=== PATIENT | female | born 1970 | race Caucasian/White ===

== ENCOUNTER 2022-02-01 09:00 | Outpatient (CLI) | payer OTHER, SELFPAY | END 2022-02-01 09:01 | disposition home or self-care (01) | LOC: NFLDREF 09:00 | PROVIDERS: PCP Obstetrics & Gynecology; Visit Provider Obstetrics & Gynecology | DX: Z01.419 Encounter for gynecological examination (general) (routine) without abnormal findings (principal); F41.9 Anxiety disorder, unspecified; Z12.4 Encounter for screening for malignant neoplasm of cervix | CPT/HCPCS: 87624; 88175 ==

== ENCOUNTER 2022-02-01 09:19 | Outpatient (CLI) | payer OTHER, SELFPAY ==
--- NOTE | 2022-02-01 09:15 | CRLHL7_ITS ---
For Patients: As a result of the Century Cures Act, medical imaging exams and procedure reports are released immediately into your electronic medical record. You may view this report before your referring provider. If you have questions, please contact your health care provider. BILATERAL SCREENING MAMMOGRAM WITH COMPUTER-AIDED DETECTION AND TOMOSYNTHESIS TECHNIQUE: CC and MLO views were obtained. These mammographic images have been obtained using full-field digital technique. These mammographic images were interpreted with the benefit of computer-aided detection. Breast Tomosynthesis was used in this interpretation. COMPARISON FILM: 01/28/2021, 01/21/2019, 12/13/2017. FINDINGS: The breasts are heterogeneously dense, which may obscure small masses IMPRESSION: There is no radiographic evidence for malignancy. ASSESSMENT: BI-RADS Category 1: Negative RECOMMENDATION: Routine screening mammogram in 1 year. A lay language report of this examination will be provided to the patient. Thien Chu M.D. Diagnostic Radiologist [email or web address] ALEX/yumiko calderon/Dictated by: Thien Chu MD @ 02/01/2022 10:08:00 AM (Electronically Signed)
== END 2022-02-01 09:20 | disposition home or self-care (01) ==
LOC: MAMMO 09:20
PROVIDERS: PCP Obstetrics & Gynecology; Visit Provider Obstetrics & Gynecology
DX: Z12.31 Encounter for screening mammogram for malignant neoplasm of breast (principal)
CPT/HCPCS: 77063; 77067

== ENCOUNTER 2022-07-10 06:42 | Emergency (ER) | payer OTHER, SELFPAY ==
--- NOTE | 2022-07-10 | CRLHL7_ITS ---
For Patients: As a result of the Century Cures Act, medical imaging exams and procedure reports are released immediately into your electronic medical record. You may view this report before your referring provider. If you have questions, please contact your health care provider. INDICATION: Post reduction. TECHNIQUE: Right elbow 2 views. COMPARISON: Same day right elbow and humerus radiographs. FINDINGS: Interval reduction of the previously seen elbow dislocation. There is an acute nondisplaced fracture of the radial head which can be subtly visualized on lateral view. This is better seen on the prior humerus radiographs. Moderate elbow joint effusion. Soft tissues are unremarkable. IMPRESSION: 1. Reduction of the previously seen elbow dislocation. 2. Acute nondisplaced fracture of the radial head. 3. Moderate elbow joint effusion. Dictated by Bonnie Ford MD @ 07/10/2022 8:16:04 AM (Electronically Signed)
--- NOTE | 2022-07-10 06:45 | ED_ITS ---
HPI - Extremity Injury (Upper) General Date Seen: 07/10/22 Chief Complaint: Extremity Pain/Injury, Upper Stated Complaint: Fall/right elbow injury Time Seen by Provider: 07/10/22 06:45 Source: patient, family, RN notes reviewed and old records reviewed Mode of arrival: ambulatory Limitations: no limitations History of Present Illness HPI narrative: Yajaira is a very pleasant 52-year-old female previously healthy who comes to the emergency room with right elbow pain and deformity after a fall. Patient notes that she was up this morning and fell over her dog landing on an outstretched right arm. She states she felt her elbow go backwards. She denies any other injury including head trauma or neck pain. She does note that initially her shoulder hurt but now that does not hurt as much. She denies numbness or tingling in the hands. She is able to move her fingers. She has not injured her herself in this fashion in the past. Any movement increases her discomfort. She is preferring to lie with her hand supinated by her side. She has not taken any medications for this. Patient has been NPO of food for almost 12 hours but did drink water at 0530. Injury occurred at 0620. Patient has not had problems with anesthesia in the past has not had any recent cough cold congestion fever or chills. She denies COPD, tobacco use. Alcohol use is social. Denies history of narcotic addiction drug use. Related Data Allergies Allergy/AdvReac Type Severity Reaction Status Date / Time No Known Allergies Allergy Verified 06/27/22 14:01 Review of Systems Status of ROS: Reports: 10 or more systems reviewed and unremarkable except as noted in History and below Const: Denies: fever or chills ENMT: Denies: throat pain, neck pain or difficulty swallowing Cardio: Denies: chest pain, palpitations or shortness of breath with exertion Resp: Denies: shortness of breath, cough or wheezing GI: Denies: abdominal pain, nausea, vomiting or difficulty swallowing Musculo: Denies: neck pain Integ/Breast: Denies: rash Neuro: Denies: headache or numbness in extremities Psych: Reports: anxiety Allergy/Immuno: Denies: wheezing PFSH PFSH Medical History 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 She works at [employer] as a teacher She has a master's degree She exercises 7 days a week by walking She does not smoke She has 1-2 drinks a week She does not use recreational drugs Smoking Status: Never smoker Do you use any of these nicotine containing products: None How often do you have a drink containing alcohol: monthly or less AUDIT-C Alcohol total score: 1 Non-prescribed substance use: denies use Little interest or pleasure in doing things: several days Feeling down, depressed, or hopeless: not at all service: No Exam Narrative: Exam Narrative: Patient is alert and oriented. GCS 15. EOM is full. Oral cavity with moist mucous membranes. Dentition intact. Posterior oropharynx clearly visualized. Neck is supple. Head is atraumatic normocephalic. No midline cervical tenderness. Range of motion full. Palpation over clavicles without discomfort. Heart with regular rate and rhythm and lungs are clear. Abdomen soft. Moving lower extremities. No unusual edema in the lower extremities. Examination of the right arm shows clear deformity at the right elbow. However distally hand sensation and motor is intact. Pulses are intact. Const: Vital Signs, click to edit/add: Vital Signs - 24 hr 07/10/22 06:52 07/10/22 07:25 07/10/22 07:49 Temperature 97.3 F L Pulse Rate [Left P ulse Oximeter] 56 L 54 L 62 Respiratory Rate 20 20 16 Blood Pressure [Le ft Upper Arm] 134/78 121/90 H 139/85 Pulse Oximetry 99 98 96 Oxygen Delivery Me thod Room Air Room Air Nasal Cannula 07/10/22 07:52 07/10/22 07:59 Temperature Pulse Rate [Left P ulse Oximeter] 55 L 61 Respiratory Rate 16 16 Blood Pressure [Le ft Upper Arm] 140/74 H 131/75 Pulse Oximetry 97 99 Oxygen Delivery Me thod Nasal Cannula Nasal Cannula Documenting provider has reviewed patient's vital signs: yes Course Course Hospital Course: Obvious deformity to the elbow suggesting dislocation. We have contacted the OR for anesthesia support as well as enquiring about any orthopedic surgeon in house. Patient will have IV established and medication morphine 4 mg and Zofran 4 mg. X-ray and route peer Reevaluation(s) Reevaluation #1: Patient noted to have continued pain and Dilaudid 0.5 mg IV is given. I discussed with patient and her need for reduction. I did explain however that there is increased risk of nerve injury, movement of any fractured parts of the bone within the elbow, vessel injury and increased pain. Risks benefits of anesthesia were also discussed including aspiration and reaction. Patient and her agree to go forward with our plan of conscious sedation with propofol and reduction. signs form for his . Reevaluation #2: Anesthesia present. Orthopedics would prefer to reduce this dislocation. We did change the consent form to reflect this. Orthopedic consult successfully reduced dislocation.. Post reduction films show successful reduction and nondisplaced radial head fracture. Vital Signs Vital signs: Initial Vital Signs Temperature 97.3 F L 07/10/22 06:52 Temperature Source Temporal Artery Scan 07/10/22 06:52 Pulse Rate 56 L 07/10/22 06:52 Pulse Rhythm 07/10/22 06:52 Respiratory Rate 20 07/10/22 06:52 Blood Pressure 134/78 07/10/22 06:52 Blood Pressure Mean 96 07/10/22 06:52 Blood Pressure Position Semi-Fowlers 07/10/22 06:52 Pulse Oximetry 99 07/10/22 06:52 Oxygen Delivery Method 07/10/22 06:52 Vital Signs Temperature 97.3 F L 07/10/22 06:52 Pulse Rate 56 L 07/10/22 06:52 Respiratory Rate 20 07/10/22 06:52 Blood Pressure 134/78 07/10/22 06:52 Pulse Oximetry 99 07/10/22 06:52 Oxygen Delivery Method 07/10/22 06:52 Temperature 97.3 F L 07/10/22 06:52 Pulse Rate 61 07/10/22 07:59 Respiratory Rate 16 07/10/22 07:59 Blood Pressure 131/75 07/10/22 07:59 Pulse Oximetry 99 07/10/22 07:59 Oxygen Delivery Method 07/10/22 07:59 MDM - Extremity Injury (Upper) MDM Narrative Medical decision making narrative: 1. Right elbow dislocation-this was successfully reduced by Dr. Murrell, orthopedic work and family life consultant. This was done with anesthesia's assistance with the use of propofol. Patient notes that she is feeling better. She notes that the feeling of her arm at a point where it is almost going to sleep has markedly improved and now she only has that feeling at the most proximal aspect of her forearm. She continues to move her fingers without difficulty and her objective sensation is fully intact, as are her pulses. Patient is placed in a sling and will follow up with Orthopedics in 5-7 days. We did talk about gentle removal of the arm from the sling occasionally with only gravity to straighten it and gentle movement if she absolutely feels the need to do that. Otherwise, wear sling until seen by Orthopedics. For pain, ibuprofen or perhaps patient has Voltaren which she has at home. Oxycodone 5 mg 1-2 tabs p.o. q.6 hours p.r.n. 10. [employer] is given. 2. Right radial head fracture -no displacement post reduction. 3. Disposition-home with her . No work this week. Return to the emergency room for worsening symptoms. Follow-up with orthopedics as previously discussed. Medical Records Attestation: I reviewed the patient's medical records. Imaging Data Elbow x-ray 1. : Attestation: I have reviewed the pertinent imaging results. My impression: Dislocation of the elbow. Radial head fracture. Radiologist's impression: The glenohumeral joint is normally aligned. There is posterior dislocation of the radius and ulna relative to the humerus. There is an acute nondisplaced fracture of the radial head. Soft tissues are unremarkable. IMPRESSION: 1. Elbow dislocation. 2. Acute nondisplaced fracture of the radial head. Humerus x-ray: Attestation: I have reviewed the pertinent imaging results. My impression: No fracture noted Radiologist's impression: INDINGS: There is posterior dislocation of the radius and ulna relative to the humerus. Acute fracture of the radial head is better seen on the humerus radiographs. Soft tissues are unremarkable. IMPRESSION: Elbow dislocation. Post reduction elbow x-ray: Attestation: I have reviewed the pertinent imaging results. My impression: Successful reduction of elbow dislocation. Radiologist's impression: FINDINGS: Interval reduction of the previously seen elbow dislocation. There is an acute nondisplaced fracture of the radial head which can be subtly visualized on lateral view. This is better seen on the prior humerus radiographs. Moderate elbow joint effusion. Soft tissues are unremarkable. IMPRESSION: 1. Reduction of the previously seen elbow dislocation. 2. Acute nondisplaced fracture of the radial head. 3. Moderate elbow joint effusion. Critical Care Time Critical Care Time Critical Care Time: Yes Attestation: The patient required my highest level preparedness to intervene emergently and I personally spent this critical care time directly and personally managing the patient. This critical care time included: Obtaining a history; Examining the patient; Pulse oximetry; Ordering and reviewing of studies; Arranging urgent treatment with development of a management plan; Evaluation of patients response to treatment; Frequent reassessment discussions with other providers. This critical care time was performed to assess and manage the high probability of imminent life-threatening deterioration that could result in multiorgan failure. It was exclusive of separate billable procedures and treating other patients and teaching time. Total Critical Care Time in Minutes: 60 Discharge Plan Discharge Clinical Impression: Closed fracture of radial head, Dislocation of elbow, right, closed Patient Disposition: Home, Self-Care Condition: Improved Additional Instructions: Follow-up with orthopedics in 1 week. Your appointment is Tylenol or ibuprofen as needed for discomfort. Oxycodone as needed for pain not relieved by Tylenol or ibuprofen. Icing may help discomfort. Please do not place ice on bare skin. Sling. Follow Up/Referrals: Miranda Gonzalez MD [Staff Physician] - Stand Alone Forms: [employer] Info Instructions
[2022-07-10 06:52] VITALS: BP 134/78; PULSE 56; RESP 20; TEMP 36.3; O2SAT 99
--- NOTE | 2022-07-10 06:53 | XR_ITS ---
Patient: TJ CUENCA Facility:?[facility] Patient ID:?[id number] Site Patient ID:?[id number]. Site :?[id number] Study:?XRay-Extremity Right humerus-07/10/2022 7:19:20 AM Ordering Physician:Gianluca Serna Final Report: INDICATION: Fall. TECHNIQUE: Right humerus 3 views. COMPARISON: None. FINDINGS: The glenohumeral joint is normally aligned. There is posterior dislocation of the radius and ulna relative to the humerus. There is an acute nondisplaced fracture of the radial head. Soft tissues are unremarkable. IMPRESSION: 1. Elbow dislocation. 2. Acute nondisplaced fracture of the radial head. Dictated by oBnnie Ford MD @ 07/10/2022 8:11:44 AM Signed by:?Bonnie Ford MD @07/10/2022 8:11:44 AM (Electronic Signature)
--- NOTE | 2022-07-10 06:53 | CRLHL7_ITS ---
For Patients: As a result of the Cures Act, medical imaging exams and procedure reports are released immediately into your electronic medical record. You may view this report before your referring provider. If you have questions, please contact your health care provider. INDICATION: Fall. TECHNIQUE: Right elbow 1 view. COMPARISON: None. FINDINGS: There is posterior dislocation of the radius and ulna relative to the humerus. Acute fracture of the radial head is better seen on the humerus radiographs. Soft tissues are unremarkable. IMPRESSION: Elbow dislocation. Dictated by Bonnie Ford MD @ 07/10/2022 8:13:33 AM (Electronically Signed)
[2022-07-10] MEDS: ONDANSETRON 2 MG/ML inj 4 MG IVP (06:59)
[2022-07-10] MEDS: MORPHINE 4 MG/ML INJ IVP (06:59)
[2022-07-10] MEDS: HYDROmorphone 0.5 mg/0.5 ml inj IVP (07:22)
[2022-07-10 07:25] VITALS: BP 121/90; PULSE 54; RESP 20; O2SAT 98
--- NOTE | 2022-07-10 07:33 | ED.NURSE ---
pt resting in bed, rates R elbow pain 8/10. at bedside.
[2022-07-10 07:49] VITALS: BP 139/85; PULSE 62; RESP 16; O2SAT 96
[2022-07-10 07:52] VITALS: BP 140/74; PULSE 55; RESP 16; O2SAT 97
[2022-07-10 07:59] VITALS: BP 131/75; PULSE 61; RESP 16; O2SAT 99
--- NOTE | 2022-07-10 08:02 | W.ANESCHARGE ---
Anesthesia Charges Start Date/Time Anesthesia Start Date: 07/10/22 Anesthesia Start Time: 07:40 Stop Date/Time Anesthesia Stop Date: 07/10/22 Anesthesia Stop Time: 07:55 Summary Emergency: Yes
--- NOTE | 2022-07-10 08:07 | ED.NURSE ---
pt had conscious sedation to reduce R elbow dislocation. anesthesia, dr. viera, and dr. cabezas in procedure. pt tolerated well. pt awake and talking now. r arm in sling. x-rays done. back at bedside.
--- NOTE | 2022-07-10 08:20 | P.ORCN_ITS ---
History of Present Illness HPI Date Seen: 07/10/22 Chief complaint: Fall/right elbow injury Narrative: Yajaira is a pleasant 52-year-old female, right-hand dominant, who reports a fall this morning from a standing height. She tripped over her dog in the house landing onto an outstretched right arm. Severe pain. Obvious deformity about her right elbow. Presented [facility]. X-rays were obtained revealed the posterior lateral elbow dislocation. Orthopedics is consulted to assist with possible reduction. She continues to have sharp pain about the right elbow. Worse with palpation or motion attempt. Relieved with rest. No numbness or tingling. Beyond that, she does note that initially her shoulder hurt but now that does not hurt as much.? She denies numbness or tingling in the hands.? She is able to move her fingers.? Patient has been NPO of food for almost 12 hours but did drink water at 0530.? Injury occurred at 0620.? Review of Systems Narrative: Denies chest pain or shortness of breath. No blurry vision double vision or headaches. No easy bleeding or bruising or clotting disorders in himself or family members. Remaining 10 point review systems otherwise negative, outside of the right elbow and primarily and secondarily mild right shoulder pain. 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 She exercises 7 days a week by walking She does not smoke She has 1-2 drinks a week She does not use recreational drugs Smoking Status: Never smoker Do you use any of these nicotine containing products: None How often do you have a drink containing alcohol: monthly or less AUDIT-C Alcohol total score: 1 Non-prescribed substance use: denies use Little interest or pleasure in doing things: several days Feeling down, depressed, or hopeless: not at all service: No Meds Home Medications and Allergies Allergies Allergy/AdvReac Type Severity Reaction Status Date / Time No Known Allergies Allergy Verified 06/27/22 14:01 Ortho Exam Narrative Exam Narrative: She is alert and oriented x3. No acute distress. Nonlabored breathing. Exam of the right upper extremity shows obvious deformity about the right elbow. There is a substantial prominence to the olecranon and range of motion is not tolerated. Neurologically intact radial, ulnar, and median nerves to sensory light touch and motor function. 2+ radial pulse. Digits pink, warm, brisk capillary refill. Const Vital Signs, click to edit/add: Vital Signs - 24 hr 07/10/22 06:52 07/10/22 07:25 07/10/22 07:49 Temperature 97.3 F L Pulse Rate [Left Pulse Oximeter] 56 L 54 L 62 Respiratory Rate 20 20 16 Blood Pressure [Left Upper Arm] 134/78 121/90 H 139/85 Pulse Oximetry 99 98 96 Oxygen Delivery Method Room Air Room Air Nasal Cannula 07/10/22 07:52 07/10/22 07:59 Temperature Pulse Rate [Left Pulse Oximeter] 55 L 61 Respiratory Rate 16 16 Blood Pressure [Left Upper Arm] 140/74 H 131/75 Pulse Oximetry 97 99 Oxygen Delivery Method Nasal Cannula Nasal Cannula Results Diagnostic results Additional Comments: Three views the right humerus and one view of the right elbow from [facility] dated 07/10/2022 ordered by doing a provider in reviewed by me. This shows a posterolateral right elbow dislocation that is complete. There appears to be a nondisplaced radial head fracture seen best on the oblique view of the distal elbow on 1 of the humerus views. Regarding the proximal humerus, I do not appreciate any acute fractures, avulsions, or intraosseous pathology otherwise. Procedures Orthopedic Joint Reduction Right elbow dislocation reduction: Time out performed: Yes Side: right Joint reduction location: elbow Analgesia: procedural sedation Local anesthetic used: other anesthetic (Anesthesia team administered propofol) Technique used: traction/counter-traction and direct manipulation Post-reduction neuro exam: intact Post-reduction vascular exam: intact Post-reduction x-ray obtained: Yes Post-reduction x-ray results: reduced Patient tolerated procedure: well Additional comments: Sling applied Assessment and Plan Assessment and plan (1) Closed fracture of radial head: Status: Acute (2) Dislocation of elbow, right, closed: Status: Acute Plan Had a good discussion today with tiny regarding her right elbow. Indeed, I do think attempted reduction here in the emergency department is prudent. We of connected with the emergency room physician, Dr. Sosa, as well as the anesthesia team, with Jj Herman. The anesthesia team is willing and able to provide propofol sedation. I will plan for closed reduction with manipulation here in the emergency room. Anticipate sling following the manipulation and reduction. Indeed, after propofol sedation and relaxation, the right elbow was reduced with slight elbow extension, traction, and then flexion. This was all done while manually manipulating the olecranon with my upset hand. This indeed had a palpable and audible clunk confirming its reduced state. In addition, forearm pronation supination as well as elbow flexion extension produces no crepitus but instead had a smooth range of motion consistent with a reduced state. Post reduction AP and lateral views of the right elbow confirm the elbow to indeed be reduced. The fracture of the radial head is not visible on these 2 images again suggesting that is nondisplaced anatomy. Moving forward, sling to right upper extremity for comfort. Finger and wrist range of motion as tolerated. Analgesics p.r.n.. Follow up in 7-10 days repeat clinical check. Anticipate starting to come out of the sling at that time for gentle range of motion as tolerated of the elbow.
[2022-07-10 08:45] VITALS: BP 131/75; PULSE 61; RESP 16; O2SAT 99
== END 2022-07-10 09:00 | disposition home or self-care (01) ==
PROVIDERS: Emergency Provider Family Medicine
DX: S52.121A Displaced fracture of head of right radius, initial encounter for closed fracture (principal); W01.0XXA Fall on same level from slipping, tripping and stumbling without subsequent striking against object, initial encounter
CPT/HCPCS: 01740; 24655; 25605; 73060; 73070; 94761; 96374; 96375; 99140; 99285; 99291; J1170; J2270; J2405; J2704

== ENCOUNTER 2022-10-25 16:00 | Outpatient (RCR) | payer OTHER, SELFPAY ==
--- NOTE | 2022-10-16 16:54 | OT.OPOE ---
OT Outpatient Ortho Eval OT Outpatient Ortho Eval Start: 10/16/22 16:23 Freq: Status: Active Protocol: Document 10/16/22 16:23 LCN (Rec: 10/16/22 16:46 LCN Desktop) E-signed By Lavern Mcdonald, OTR/L, CLT OT OP Ortho Eval Details Type Type Eval Complexity Low Insurance Information Insurance Information [facility] History/Precautions Current Condition/Medical Diagnosis Referring Provider Andre Munoz Treatment Diagnosis Elbow dislocation, closed non displaced radial fracture with loss of ROM Date of Onset 07/10/22 Other Precautions Xray shows good healing at radial head, joint stability instact surrounding elbow. Advised to increase activity to tolerance and watch for increased pain. Medical Conditions Depression Other Conditions sees chiropractor for maintenance of chronic neck and shoulder pain, insomnia. Medical/Functional History Medical History Reviewed Yes Prior Level of Function/Mobility Yajaira is a very active 52 y/o female, lives with her in [place] and has second home she is remodeling in [place]. 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 Fitness Walking daily 5 miles per day. Oriented Mental Status Comments Pt has anxiety and depression, well managed usually through activity. Ortho Subjective Subjective Subjective Yajaira Villalta is a 52 y/o female who tripped over her dog on her carpeted bedroom floor and dislocated her R elbow during the fall onto out stretched hand. She wore a sling for the first week, had increased hand /elbow edema with stiffness, and was issued tubigrip to wear at her visit with Dr. Munoz. Pain Assessment Pain Present Pain Present Pain Reported Shoulder Goniometric ROM Shoulder R Active Flexion (150-180 degrees) 165 Query Text: Shoulder Gross Strength Shoulder R Testing Position Sitting Flexion 5 Normal Extension 5 Normal Abduction 5 Normal Adduction 5 Normal External Rotation 5 Normal Internal Rotation 5 Normal Goniometric Comments Goniometric Comments Goniometric Comments R EL IVETTE to 177 of -10. TEF to 130 of 142 (easiest in supination, neutral), restricted by soft tissue impingement/edema. MMT 5/5 for biceps/triceps. Swimming Pool Attendant/pinch NT, not available. Edema 3 cm above elbow crease is 23.0 R and 20.6 cm L. Pain-- none at rest, pressure during lifting a gallon of milk.Prickly achy feeling at radfial head/deep in joint, comes in waves 3-4 times per week. OT Objective Data Hand Hand Dominance Right OT Problems Problems Problems Decreased Range of Motion, Lifting Problems Comments curling, drying hair, stiff shoulder when reaching overhead to ney tops. Other Problems Fasteners Assessment Assessment Assessment With Yajaira's recent R elbow dislocation she is having some residual?difficulty with edema, aching and ROM of R shoulder/elbow and she would benefit from skilled OT to address these areas. Occupational Therapy Treatment Plan - OP Potential Rehabilitation Potential Excellent Set Goals Goals Set with Patient Yes Goals Goals In 4 weeks, pt will demonstrate:? 1) Decreased pn to <1/10 80% of the time with sustained gripping, carrying groceries, reading books and doing hair. 2) I HEP for stretching, gradual strengthening and self mgmt strategies. 3) balanced prescription clerk pinch strength with pain < 1/10. Treatment Plan Treatment Plan Evaluation,Iontophoresis,Joint Mobilization,Manual Therapy, Therapeutic Exercise,Education Expected Frequency 1-2x Week Expected Duration 2-4 Weeks Expected Duration Comments estimate 2-4 visits needed at max. Certification Certification I Certify That: Therapy Services Provided, Therapy Plan Established, Therapy Plan Reviewed
--- NOTE | 2022-10-25 17:33 | OT.OPODN ---
OT Outpatient Ortho Daily Note OT Outpatient Ortho Daily Note Start: 10/16/22 16:23 Freq: Status: Active Protocol: Document 10/25/22 17:13 LCN (Rec: 10/25/22 17:33 LCN Desktop) E-signed By Lavern Mcdonald, OTR/L, CLT Type of Note Type of Note Type of Note Daily Note,Discharge Note Visit Number 3 Insurance Information Insurance Information [facility] History/Precautions Current Condition/Medical Diagnosis Referring Provider Andre Munoz Treatment Diagnosis Elbow dislocation, closed non displaced radial fracture with loss of ROM Date of Onset 07/10/22 Other Precautions Xray shows good healing at radial head, joint stability instact surrounding elbow. Advised to increase activity to tolerance and watch for increased pain. Medical Conditions Depression Other Conditions sees chiropractor for maintenance of chronic neck and shoulder pain, insomnia. Medical/Functional History Medical History Reviewed Yes Prior Level of Function/Mobility Yajaira is a very active 52 y/o female, lives with her in [place] and has second home she is remodeling in [place]. 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 Fitness Walking daily 5 miles per day. Oriented Mental Status Comments Pt has anxiety and depression, well managed usually through activity. Ortho Subjective Subjective Subjective Pt has returned to full ROM of EL flexion and hyper extension. She does her self tractioning stretches on doorway for IVETTE, which helps with any lagging, stickiness in joint. Still gets mild waves of achiness at end of her work day. Responds well to stretches. Pain Assessment Pain Present Pain Present Pain Reported / OT OP Daily Ortho Note/Assessment Therapeutic Exercise Therapeutic Exercise Minutes (minutes) 16 Therapeutic Exercise Comments Added HEP for upper body strengthening, supporting full AROM of elbow and joint stability--UB resistance H ABD , SH diagonals, ER, chest press and biceps 2 sets of 10 reps, green band. Well tolerated needs cues to keep wrist neutral (gurpreet R) and spinal alignment. Manual Therapy Manual Therapy Minutes (minutes) 16 Manual Therapy Comments OTR completed IASTM with Armin #6 to mobilize soft tissue surrounding joint capsule,?ligament structures and muscle groups to support freedom of movement and healing of structures of R triceps ( gurpreet triceps insert gritty at margin, MT juction), muscle bellies of biceps, axillary border of scapula, flexor and extensor muscle bulk of upper forearm. Pt has more EL FL to 140 by end of session in SH FL plane, now matches in SH ABD plane. IVETTE to -10, same as L. Shoulder Goniometric ROM Shoulder R Reason Not Measured Within Functional Limits Active Flexion (150-180 degrees) 170 Query Text: Shoulder Gross Strength Shoulder R Testing Position Sitting Flexion 5 Normal Extension 5 Normal Abduction 5 Normal Adduction 5 Normal External Rotation 5 Normal Internal Rotation 5 Normal Goniometric Comments Goniometric Comments Goniometric Comments 10/25/22-- R EL IVETTE to -10 of - 10. TEF to 140 of 142 ( easiest in supination, neutral ), restricted by soft tissue impingement/edema. MMT 5/5 for biceps/triceps. Waxing Machine Operator Helper/pinch NT, not available. Edema 3 cm above elbow crease is 23.0 R and 20.6 cm L. Pain-- none at rest, pressure during lifting a gallon of milk.Prickly achy feeling at radial head/deep in joint, comes in waves 3-4 times per week. OT Objective Data Hand Hand Dominance Right Additional Information Objective Additional Information HEP-- UB resistance H ABD, SH diagonals, ER, chest press and biceps 2sets of 10 reps, green band. SROM at door frame IVETTE, TEF in sup/neutral and pronated planes.2x/day 3 reps each. OT Problems Problems Problems Comments curling, drying hair, stiff shoulder when reaching overhead to ney tops. (ALL MET, no longer difficulty 10/25 Other Problems Fasteners Patient Potential Excellent Assessment Assessment Assessment Pt has full ROM of R elbow flexion, extension and has met all goals of therapy. Appropriate for d/c, pt agrees and pleased with outcome. With Yajaira's recent R elbow dislocation, she is having some residual?difficulty with edema, aching and ROM of R shoulder/elbow and she would benefit from skilled OT to address these areas. Occupational Therapy Treatment Plan - OP Potential Rehabilitation Potential Excellent Set Goals Goals Set with Patient Yes Goals Goals In 4 weeks, pt will demonstrate:? 1) Decreased pn to <1/10 80% of the time with sustained gripping, carrying groceries, reading books and doing hair. (10/25/22-- GOAL MET) 2) I HEP for stretching, gradual strengthening and self mgmt strategies.(10/25/22-- GOAL MET) 3) balanced lighting adviser pinch strength with pain < 1/10. (-- GOAL MET) Treatment Plan Treatment Plan Evaluation,Manual Therapy, Therapeutic Exercise,Education Expected Frequency 1-2x Week Expected Duration 2-4 Weeks Expected Duration Comments estimate 2-4 visits needed at max. OT Treatment Minutes Treatment Minutes Timed Treatment Minutes 32 Total Treatment Minutes 32 Occupational Therapy Billing Units Billing Units Manual Therapy 1 Therapeutic Exercise 1 Certification Certification I Certify That: Therapy Services Provided, Therapy Plan Established, Therapy Plan Reviewed Discharge Note Discharge Note Discharge Summary Pt was seen for 3 visits of skilled OT with manual therapy and Graston approach with therapeutic exercises.All goals met per above Date of First Visit for Therapy 10/16/22 Date of Last Visit for Therapy 10/25/22 Initial Primary Functional Limitations/ Yajairafang Villalta is a 52 y/o [place] female who tripped over her dog on her carpeted bedroom floor and dislocated her R elbow during the fall onto out stretched hand. She wore a sling for the first week, had increased hand /elbow edema with stiffness, and was issued tubigrip to wear at her visit with Dr. Munoz. Initial Pain Level 3 Pain Level at Discharge 1 Interventions Provided During Treatment Joint Mobilization,Manual Therapy,Therapeutic Exercise, Self Care/Home Management Recommendations/Reason for Discharge Met All Therapy Goals,Progress Cont w/HEP Discharge Instructions Pt to continue with upper body resistance trainig using medium green therapy band for 5 planes of UB. Thanks so much for this referral, patient really appreciated the extra help! Lavern Mcdonald, OTR/l CLT
== END 2023-02-22 23:59 | disposition home or self-care (01) ==
PROVIDERS: PCP Orthopaedic Surgery Sports Medicine; Visit Provider Orthopaedic Surgery Sports Medicine
DX: S53.104D Unspecified dislocation of right ulnohumeral joint, subsequent encounter (principal); S52.124D Nondisplaced fracture of head of right radius, subsequent encounter for closed fracture with routine healing; Z51.89 Encounter for other specified aftercare
CPT/HCPCS: 97110; 97140; 97165; X5282

== ENCOUNTER 2023-02-02 11:26 | Outpatient (CLI) | payer OTHER, SELFPAY ==
--- NOTE | 2023-02-02 11:30 | CRLHL7_ITS ---
For Patients: As a result of the Century Cures Act, medical imaging exams and procedure reports are released immediately into your electronic medical record. You may view this report before your referring provider. If you have questions, please contact your health care provider. BILATERAL SCREENING MAMMOGRAM WITH COMPUTER-AIDED DETECTION AND TOMOSYNTHESIS TECHNIQUE: CC and MLO views were obtained. These mammographic images have been obtained using full-field digital technique. These mammographic images were interpreted with the benefit of computer-aided detection. Breast Tomosynthesis was used in this interpretation. COMPARISON FILM: 02/01/22, 01/28/21, 01/21/19. FINDINGS: The breasts are heterogeneously dense, which may obscure small masses IMPRESSION: There is no radiographic evidence for malignancy. ASSESSMENT: BI-RADS Category 1: Negative RECOMMENDATION: Routine screening mammogram in 1 year. A lay language report of this examination will be provided to the patient. Thien Chu M.D. Diagnostic Radiologist [email or web address] BRIAN/Dictated by: Thien Chu MD @ 02/02/2023 12:24:00 PM (Electronically Signed)
== END 2023-02-02 11:27 | disposition home or self-care (01) ==
LOC: MAMMO 11:26
PROVIDERS: PCP Orthopaedic Surgery Sports Medicine; Visit Provider Obstetrics & Gynecology
DX: Z12.31 Encounter for screening mammogram for malignant neoplasm of breast (principal); Z13.1 Encounter for screening for diabetes mellitus
CPT/HCPCS: 77063; 77067; 80061; 82947

== ENCOUNTER 2023-04-12 07:03 | Day surgery (SDC) | payer OTHER, SELFPAY ==
[2023-04-12] MEDS: LACTATED RINGERS 1000 ML 1,000 ML 100 ML IV (07:05)
--- NOTE | 2023-04-12 07:17 | W.PM.H&PU ---
History & Physical Update History & Physical Update H&P Reviewed and patient assessed: No changes noted H&P Updates: Preoperative diagnosis: Persistent HPV positive Pap smears Planned procedures: Colposcopy with cervical biopsies and possible endocervical curettage Physical exam: General: No acute distress Psych: Alert and oriented x3, full affect HEENT: Normocephalic, atraumatic Heart: Regular rate and rhythm, no murmur rub or gallop Lungs: Clear to auscultation bilaterally Labs: Urine negative Pap NIL, HPV +, not types 16 or 18, on 02/02/23
[2023-04-12 07:20] VITALS: BMI 21.8
[2023-04-12 07:22] LABS: Ur HCG Qualitative* Negative (Negative)
[2023-04-12 07:23] VITALS: BP 113/79; PULSE 65; RESP 16; TEMP 36.9; O2SAT 97
[2023-04-12] MEDS: SODIUM CHLORIDE 0.9 % (FLUSH) 10 ML SYRINGE IVF (07:45)
[2023-04-12] MEDS: ETHYL CHLORIDE 1 APPLICATION 1 APPLIC TOPICAL (07:45)
--- NOTE | 2023-04-12 07:45 | W.ANESCHARGE ---
Anesthesia Charges Start Date/Time Anesthesia Start Date: 04/12/23 Anesthesia Start Time: 07:47 Stop Date/Time Anesthesia Stop Date: 04/12/23 Anesthesia Stop Time: 08:25
--- NOTE | 2023-04-12 08:12 | W.ANESCHARGE ---
Anesthesia Charges Start Date/Time Anesthesia Start Date: 04/12/23 Anesthesia Start Time: 07:47 Stop Date/Time Anesthesia Stop Date: 04/12/23 Anesthesia Stop Time: 08:25
[2023-04-12 08:22] VITALS: BP 102/73; PULSE 67; RESP 16; TEMP 36.6; O2SAT 97
[2023-04-12 08:30] VITALS: BP 97/64; PULSE 57; RESP 16; O2SAT 97
--- NOTE | 2023-04-12 08:43 | W.PM.GYNPROC ---
Procedure Note Date of procedure: 04/12/23 Pre-op diagnosis: Persistent HPV positive pap smears Post-op diagnosis: same Procedure: Colposcopy with cervical biopsies and endocervical curettage Anesthesia: MAC Complications: None Surgeon: Miranda Gonzalez MD Estimated blood loss (mL): 2 IV fluids (mL): 500 Pathology: specimen obtained, sent to pathology (1. Cervical biopsy 11 o'clock. 2. Cervical biopsy 7 o'clock. 3. Endocervical curettage ) Condition: stable Disposition: same day Findings: As below Procedure Description: Speculum inserted. Cervix visualized and cleansed with 5% acetic acid. Colposcope employed to visualize cervix and upper vagina. Unable to visualize the majority of the transformation zone, which was located in the endocervix. Thin acetowhite epithelium noted in ill-defined patches at 11 and 7 o'clock. Between 11 and 7 o'clock, on the right side of the cervix, there were some dilated blood vessels overlying apparent small nabothian cysts. This patch of ectocervical mucosa did not stain with application of Lugol's. Hazardous Materials Tanker Driver biopsies are taken at 11 and 7. ECC performed in a circumferential fashion and sent to pathology. Hemostasis is achieved with Monsel's solution. Patient tolerated procedure well.
[2023-04-12 08:45] VITALS: BP 106/89; PULSE 55; RESP 16; O2SAT 97
== END 2023-04-12 09:05 | disposition home or self-care (01) ==
PROVIDERS: PCP Physician Assistant Medical; Visit Provider Obstetrics & Gynecology
PROC: 0UJH8ZZ Inspection of Vagina and Cul-de-sac, Via Natural or Artificial Opening Endoscopic (ICD-10-PCS; CPT 57454; principal; 2023-04-12 08:00)
DX: R87.810 Cervical high risk human papillomavirus (HPV) DNA test positive (principal)
CPT/HCPCS: 57454; 00940; 81025; 88305; 88342; A9270; J1100; J1885; J2250; J2405; J2704; J3010; J7120

== ENCOUNTER 2024-03-11 15:52 | Outpatient (CLI) | payer OTHER, SELFPAY ==
--- NOTE | 2024-03-11 16:00 | CRLHL7_ITS ---
For Patients: As a result of the Century Cures Act, medical imaging exams and procedure reports are released immediately into your electronic medical record. You may view this report before your referring provider. If you have questions, please contact your health care provider. BILATERAL SCREENING MAMMOGRAM WITH COMPUTER-AIDED DETECTION AND TOMOSYNTHESIS TECHNIQUE: CC and MLO views were obtained. These mammographic images have been obtained using full-field digital technique. These mammographic images were interpreted with the benefit of computer-aided detection. Breast Tomosynthesis was used in this interpretation. COMPARISON FILM: 02/02/23, 02/01/22, 01/28/21. FINDINGS: The breasts are heterogeneously dense, which may obscure small masses. IMPRESSION: There is no radiographic evidence for malignancy. ASSESSMENT: BI-RADS Category 1: Negative RECOMMENDATION: Routine screening mammogram in 1 year. A lay language report of this examination will be provided to the patient. Thien Chu M.D. Diagnostic Radiologist [email or web address] SP/Dictated by: Thien Chu MD @ 03/13/2024 11:42:00 AM (Electronically Signed)
== END 2024-03-11 15:53 | disposition home or self-care (01) ==
LOC: MAMMO 15:53
PROVIDERS: PCP Physician Assistant Medical; Visit Provider Physician Assistant Medical
DX: Z12.31 Encounter for screening mammogram for malignant neoplasm of breast (principal); R92.2 Inconclusive mammogram
CPT/HCPCS: 77063; 77067

== ENCOUNTER 2024-04-16 11:50 | Outpatient (CLI) | payer OTHER, SELFPAY | END 2024-04-16 11:51 | disposition home or self-care (01) | PROVIDERS: PCP Physician Assistant Medical; Visit Provider Physician Assistant Medical | DX: Z00.00 Encounter for general adult medical examination without abnormal findings (principal); R19.7 Diarrhea, unspecified; Z13.6 Encounter for screening for cardiovascular disorders; Z11.59 Encounter for screening for other viral diseases; Z13.29 Encounter for screening for other suspected endocrine disorder | CPT/HCPCS: 80053; 80061; 84443; 86703; 86803 ==

== ENCOUNTER 2024-04-19 12:00 | Outpatient (CLI) | payer OTHER, SELFPAY | END 2024-04-19 12:01 | disposition home or self-care (01) | LOC: NFLDREF 04-22 14:53 | PROVIDERS: PCP Physician Assistant Medical; Referring Provider Physician Assistant Medical; Visit Provider Physician Assistant Medical | DX: R19.7 Diarrhea, unspecified (principal) | CPT/HCPCS: 83630; 87045; 87046; 87177; 87209; 87338; 87427; 87493; 87505; 87798 ==

== ENCOUNTER 2024-05-23 08:22 | Outpatient (CLI) | payer OTHER, SELFPAY ==
[2024-05-24 23:05] LABS: HPV Source Cervical; HPV, High Risk by TMA Not Detected
== END 2024-05-23 08:23 | disposition home or self-care (01) ==
PROVIDERS: PCP Physician Assistant Medical; Visit Provider Obstetrics & Gynecology
DX: Z01.419 Encounter for gynecological examination (general) (routine) without abnormal findings (principal); Z12.4 Encounter for screening for malignant neoplasm of cervix
CPT/HCPCS: 87624; 87625; 88141; 88142

== ENCOUNTER 2025-03-17 15:07 | Outpatient (CLI) | payer OTHER, SELFPAY ==
--- NOTE | 2025-03-17 15:40 | CRLHL7_ITS ---
For Patients: As a result of the Century Cures Act, medical imaging exams and procedure reports are released immediately into your electronic medical record. You may view this report before your referring provider. If you have questions, please contact your health care provider. INDICATION: BILATERAL SCREENING MAMMOGRAM, ASYMPTOMATIC 55 Y/O FEMALE COMPARISON: 03/11/2024, 02/02/2023, 02/01/2022 TECHNIQUE: Digital mammogram in CC and MLO projections including computer-aided detection (CAD) and tomosynthesis. BREAST COMPOSITION: The breasts are heterogeneously dense, which may obscure small masses. FINDINGS: No suspicious findings. ASSESSMENT: BI-RADS 1 Negative RECOMMENDATION: Annual screening mammogram. A lay language report of this examination will be provided to the patient. Dictated by: Thien Chu MD @ 03/18/2025 09:58:38 (Electronically Signed)
== END 2025-03-17 15:08 | disposition home or self-care (01) ==
LOC: MAMMO 15:08
PROVIDERS: PCP Physician Assistant Medical; Visit Provider Obstetrics & Gynecology
DX: Z12.31 Encounter for screening mammogram for malignant neoplasm of breast (principal); R92.333 Mammographic heterogeneous density, bilateral breasts
CPT/HCPCS: 77063; 77067

== ENCOUNTER 2025-04-22 09:15 | Outpatient (CLI) | payer OTHER, SELFPAY | END 2025-04-22 09:16 | disposition home or self-care (01) | PROVIDERS: PCP Physician Assistant Medical; Visit Provider Physician Assistant Medical | DX: F32.A Depression, unspecified (principal); N95.1 Menopausal and female climacteric states; Z00.00 Encounter for general adult medical examination without abnormal findings | CPT/HCPCS: 80053; 80061; 82306; 84443 ==

== ENCOUNTER 2025-06-04 14:49 | Outpatient (CLI) | payer OTHER, SELFPAY ==
--- NOTE | 2025-06-04 15:00 | CRLHL7_ITS ---
For Patients: As a result of the Century Cures Act, medical imaging exams and procedure reports are released immediately into your electronic medical record. You may view this report before your referring provider. If you have questions, please contact your health care provider. INDICATION: Abnormal uterine and vaginal bleeding COMPARISON: None. TECHNIQUE: 2D krishna-scale and color Doppler images were acquired of the pelvis using a transabdominal approach. Patient declined transvaginal imaging. FINDINGS: Sonographic images demonstrate a normal size and smooth outer contour of the uterus. Uterus measures 8.8 cm in length by 4.3 cm in AP diameter by 6.2 cm in transverse dimension. The myometrium has a mildly heterogeneous echotexture. The endometrial lining measures 6 mm in composite thickness. The right ovary measures 4.6 x 1.7 x 2.6 cm in size and the left ovary measures 3.2 x 1.6 x 1.6 cm. The ovaries demonstrate normal arterial and venous blood flow on color Doppler analysis. Trace incidental pelvic free fluid noted. IMPRESSION: Endometrial thickness 6 millimeters. No endometrial fluid. No uterine fibroid. Dictated by Thien Chu MD @ 06/04/2025 3:43:46 PM (Electronically Signed)
== END 2025-06-04 14:50 | disposition home or self-care (01) ==
LOC: US 14:50
PROVIDERS: PCP Physician Assistant Medical; Visit Provider Obstetrics & Gynecology
DX: N93.9 Abnormal uterine and vaginal bleeding, unspecified (principal); R93.89 Abnormal findings on diagnostic imaging of other specified body structures
CPT/HCPCS: 76856

== ENCOUNTER 2025-06-15 10:46 | Outpatient (CLI) | payer OTHER, SELFPAY | END 2025-06-15 10:47 | disposition home or self-care (01) | LOC: NFLDREF 10:46 | PROVIDERS: PCP Physician Assistant Medical; Visit Provider Obstetrics & Gynecology | DX: N93.9 Abnormal uterine and vaginal bleeding, unspecified (principal) | CPT/HCPCS: 83001 ==